=== PATIENT | female | born 1970 | race Caucasian/White ===

== ENCOUNTER 2021-03-30 20:35 | Inpatient (IN) | payer OTHER, MEDICAID ==
[~2021-03-30] VITALS: Ht 160 cm; Wt 83.9 kg
[2021-03-31 01:09] LABS: BASOPHILS % 0.7 % (0.0-2.0); EOSINOPHILS % 1.3 % (0.0-5.0); HEMATOCRIT. 33.2 % (36.0-48.0); HEMOGLOBIN. 10.9 g/dL (12.0-16.0); MEAN CORPUSCULAR HEMOGLOBIN 29.2 pg (28.0-32.0); MEAN CORPUSCULAR VOLUME 88.9 fL (81.0-99.0); MEAN PLATELET VOLUME 7.9 fl (7.4-10.4); MONOCYTES % 6.7 % (2.0-8.0); NEUTROPHILS % 44.3 % (40.0-76.0); PLATELET 248 x1000/uL (130-400); RED BLOOD CELL COUNT 3.73 mill/uL (4.2-5.4); RED CELL DISTRIBUTION WIDTH 13.9 % (11.6-14.6)
[2021-03-31 01:29] LABS: CHLORIDE 96 mEq/L (98-107); HCG SCREEN NEGATIVE
[2021-03-31 01:33] LABS: ETHANOL BLOOD < 10 mg/dL
[2021-03-31] MEDS ORDERED: MORPHINE SULFATE 4 MG/ML CPJ (NOT FOR IM USE) IV SCH (01:45)
[2021-03-31] MEDS ORDERED: ONDANSETRON HCL 4MG/2ML INJ IV SCH (05:30)
[2021-03-31] MEDS ORDERED: IOHEXOL-350 100 ML BOTTLE ONE (06:54)
[2021-03-31] MEDS ORDERED: DOCUSATE SODIUM 100MG CAPSULE PO PRN (07:15)
[2021-03-31] MEDS ORDERED: MAGNESIUM/ALUMINUM HYDROXIDE/SIMETHICONE 30ML UDC PO PRN (07:15)
[2021-03-31] MEDS ORDERED: NITROGLYCERIN 0.4MG TABLET SL SL PRN (07:15)
[2021-03-31] MEDS ORDERED: IPRATROPIUM/ALBUTEROL 0.5-3(2.5)MG/3ML NEB NEB PRN (07:15)
[2021-03-31] MEDS ORDERED: KETOROLAC 15MG/ML VIAL IV PRN (07:15)
[2021-03-31] MEDS ORDERED: ONDANSETRON HCL 4MG/2ML INJ IV PRN (07:15)
[2021-03-31] MEDS ORDERED: ACETAMINOPHEN 325MG TABLET PO PRN (07:15)
[2021-03-31] MEDS ORDERED: GUAIFENESIN 200MG/10ML SUGAR FREE UDC PO PRN (07:15)
[2021-03-31] MEDS ORDERED: CLONIDINE 0.1MG TABLET PO PRN (07:15)
[2021-03-31] MEDS ORDERED: DEXTROSE 50% WATER 50ML SYRINGE IV PRN (07:15)
[2021-03-31] MEDS ORDERED: ZOLPIDEM TARTRATE 5MG TABLET PO PRN (07:15)
[2021-03-31] MEDS ORDERED: TRAMADOL 50MG TABLET PO PRN (07:15)
[2021-03-31 07:44] LABS: VITAMIN B12 SERUM 666 pg/mL (211-911)
[2021-03-31 07:51] LABS: FOLIC ACID (FOLATE) SERUM > 20.00 ng/mL (>5.38)
[2021-03-31] MEDS ORDERED: ENOXAPARIN 80MG/0.8ML SYR SUBCUT NR (08:00)
[2021-03-31 08:49] LABS: INR 0.9; PROTHROMBIN TIME 9.9 sec (9.6-11.0)
[2021-03-31] MEDS: BLOOD SUGAR DIAGNOSTIC STRIP TEST SCH ×4 (09:52→20:05)
[2021-03-31] MEDS: FAMOTIDINE 20MG TABLET PO SCH ×2 (10:06→19:53)
[2021-03-31] MEDS: INSULIN LISPRO 100 UNITS/ML SUBCUT SCH ×4 (10:06→20:05)
[2021-03-31 11:00] VITALS: BP 98/59
[2021-03-31 11:05] LABS: *BARBITURATES SCREEN URINE NEGATIVE (NEGATIVE); CANNABINOID URINE SCREEN NEGATIVE (NEGATIVE); METHADONE URINE SCREEN NEGATIVE (NEGATIVE); OPIATES URINE SCREEN PRESUMTIVE POSITIVE (NEGATIVE); PHENCYCLIDINE URINE SCREEN NEGATIVE (NEGATIVE)
[2021-03-31 11:06] LABS: *AMPHETAMINES SCREEN URINE PRESUMTIVE POSITIVE (NEGATIVE); *BENZODIAZEPINES SCREEN URINE NEGATIVE (NEGATIVE); *COCAINE SCREEN URINE NEGATIVE (NEGATIVE)
[2021-03-31] MEDS: INSULIN GLARGINE UD 100 UNITS/ML SYR SUBCUT SCH (11:57)
[2021-03-31 12:00] VITALS: BP 98/59
[2021-03-31] MEDS ORDERED: DABI75CA3 PO (14:16)
[2021-03-31] MEDS ORDERED: LOPHC2 MT (14:16)
[2021-03-31] MEDS ORDERED: INSU100I28 SQ (14:16)
[2021-03-31] MEDS ORDERED: OMEP20CA14 MT (14:16)
[2021-03-31] MEDS ORDERED: EFEX1 MT (14:16)
[2021-03-31] MEDS ORDERED: GABA-290 MT (14:16)
[2021-03-31] MEDS ORDERED: INFLUENZA VACCINE 05/PF 0.5 ML SYRINGE IM ONE (15:15)
[2021-03-31 16:00] VITALS: BP 97/48
[2021-03-31 17:32] LABS: CREATINE KINASE 45 IU/L (26-192)
[2021-03-31 17:33] LABS: CREATINE KINASE MB FRACTION 1.1 ng/mL (0.5-3.6)
[2021-03-31] MEDS: ENOXAPARIN 80MG/0.8ML SYR SUBCUT SCH (19:53)
[2021-03-31 20:00] VITALS: BP_SYST 103; BP_DIAS 61; BP_DIAS 72
[2021-04-01] VITALS: BP 103/72
[2021-04-01 00:29] LABS: CREATINE KINASE 32 IU/L (26-192)
[2021-04-01 00:30] LABS: CREATINE KINASE MB FRACTION < 1.0 ng/mL (0.5-3.6)
[2021-04-01 04:00] VITALS: BP 97/68
[2021-04-01] MEDS: BLOOD SUGAR DIAGNOSTIC STRIP TEST SCH ×4 (05:17→21:06)
[2021-04-01] MEDS: INSULIN LISPRO 100 UNITS/ML SUBCUT SCH ×4 (05:17→21:13)
[2021-04-01 08:00] VITALS: BP 98/70
[2021-04-01 08:30] LABS: BASOPHILS % 0.3 % (0.0-2.0); EOSINOPHILS % 1.1 % (0.0-5.0); HEMATOCRIT. 32.1 % (36.0-48.0); HEMOGLOBIN. 10.5 g/dL (12.0-16.0); LYMPHOCYTES % 46.8 % (20.0-50.0); MEAN CORPUSCULAR HEMOGLOBIN 29.2 pg (28.0-32.0); MEAN CORPUSCULAR VOLUME 88.8 fL (81.0-99.0); MEAN PLATELET VOLUME 7.5 fl (7.4-10.4); MONOCYTES % 7.2 % (2.0-8.0); NEUTROPHILS % 44.6 % (40.0-76.0); PLATELET 244 x1000/uL (130-400); RED BLOOD CELL COUNT 3.61 mill/uL (4.2-5.4); RED CELL DISTRIBUTION WIDTH 14.2 % (11.6-14.6)
[2021-04-01 08:55] LABS: CHLORIDE 105 mEq/L (98-107)
[2021-04-01] MEDS ORDERED: PNEUMOCOCCAL 23-VAL P-SAC VAC 0.5 ML IM ONE (09:00)
[2021-04-01 09:04] LABS: PHOSPHORUS 3.8 mg/dL (2.5-4.9)
[2021-04-01] MEDS: FAMOTIDINE 20MG TABLET PO SCH ×2 (09:25→21:05)
[2021-04-01] MEDS: ENOXAPARIN 80MG/0.8ML SYR SUBCUT SCH ×2 (09:27→21:05)
[2021-04-01] MEDS: INSULIN GLARGINE UD 100 UNITS/ML SYR SUBCUT SCH (10:00)
[2021-04-01 12:00] VITALS: BP 100/68
[2021-04-01] MEDS ORDERED: LIDOCAINE HCL 2% JELLY 5ML TOP NR (12:00)
[2021-04-01] MEDS ORDERED: LIDOCAINE HCL 1% 20ML VIAL (Pyxis) INJ INFIL NR (12:00)
[2021-04-01] MEDS: NICOTINE 7MG PATCH TD SCH (14:30)
[2021-04-01] MEDS ORDERED: CEFTRIAXONE 1 G PREMIX 50 ML IV SCH (15:45)
[2021-04-01 16:00] VITALS: BP 98/70
[2021-04-01] MEDS ORDERED: NALOXONE HCL 0.4MG/ML VIAL IV PRN (17:00)
[2021-04-01] MEDS ORDERED: CEFTRIAXONE 1,000 MG in DEXTROSE 5% WATER 50 ML IV SCH (17:30)
[2021-04-01] MEDS ORDERED: VANCOMYCIN 1500MG in DEXTROSE 5% WATER 250ML IV NR (18:00)
[2021-04-01] MEDS ORDERED: DIPHENHYDRAMINE 50MG/ML VIAL IV NR (19:45)
[2021-04-01 20:00] VITALS: BP 125/80
[2021-04-02] VITALS: BP 101/56
[2021-04-02 04:00] VITALS: BP 111/72
[2021-04-02] MEDS ORDERED: VANCOMYCIN 1 G PREMIX 200 ML IV SCH (06:00)
[2021-04-02] MEDS: BLOOD SUGAR DIAGNOSTIC STRIP TEST SCH ×4 (06:02→20:53)
[2021-04-02] MEDS: INSULIN LISPRO 100 UNITS/ML SUBCUT SCH ×4 (06:18→20:53)
[2021-04-02 08:00] VITALS: BP 92/57
[2021-04-02 08:30] LABS: BASOPHILS % 0.3 % (0.0-2.0); EOSINOPHILS % 1.2 % (0.0-5.0); HEMOGLOBIN. 10.5 g/dL (12.0-16.0); LYMPHOCYTES % 54.5 % (20.0-50.0); MEAN CORPUSCULAR VOLUME 88.5 fL (81.0-99.0); MEAN PLATELET VOLUME 7.8 fl (7.4-10.4); MONOCYTES % 7.5 % (2.0-8.0); NEUTROPHILS % 36.5 % (40.0-76.0); PLATELET 261 x1000/uL (130-400); RED BLOOD CELL COUNT 3.62 mill/uL (4.2-5.4); RED CELL DISTRIBUTION WIDTH 13.9 % (11.6-14.6)
[2021-04-02 08:51] LABS: CHLORIDE 104 mEq/L (98-107)
[2021-04-02] MEDS: NICOTINE 7MG PATCH TD SCH (09:30)
[2021-04-02] MEDS: ENOXAPARIN 80MG/0.8ML SYR SUBCUT SCH ×2 (09:31→20:53)
[2021-04-02] MEDS: FAMOTIDINE 20MG TABLET PO SCH ×2 (09:31→20:52)
[2021-04-02] MEDS: INSULIN GLARGINE UD 100 UNITS/ML SYR SUBCUT SCH (09:32)
[2021-04-02 12:00] VITALS: BP 123/79
[2021-04-02 16:00] VITALS: BP 131/75
[2021-04-02] MEDS: VANCOMYCIN 1 G PREMIX 200 ML IV SCH (16:08)
[2021-04-02] MEDS ORDERED: TETANUS, DIPHTHERIA, PERTUSSIS VAC/PF 0.5ML (>10YR OLD) IM ONE (17:00)
[2021-04-02] MEDS: HYDROCODONE/ACETAMINOPHEN 5/325MG TABLET PO PRN (17:56)
[2021-04-02 20:00] VITALS: BP 112/66
[2021-04-02] MEDS: CEFTRIAXONE 1,000 MG in DEXTROSE 5% WATER 50 ML IV SCH (20:52)
[2021-04-03] VITALS: BP 126/71
[2021-04-03 04:00] VITALS: BP 111/61
[2021-04-03] MEDS: VANCOMYCIN 1 G PREMIX 200 ML IV SCH ×3 (06:02→21:10)
[2021-04-03] MEDS: BLOOD SUGAR DIAGNOSTIC STRIP TEST SCH ×4 (06:02→21:11)
[2021-04-03] MEDS: INSULIN LISPRO 100 UNITS/ML SUBCUT SCH ×4 (06:41→21:11)
[2021-04-03 08:00] VITALS: BP 105/62
[2021-04-03] MEDS: ENOXAPARIN 80MG/0.8ML SYR SUBCUT SCH ×2 (08:26→21:10)
[2021-04-03] MEDS: NICOTINE 7MG PATCH TD SCH (08:26)
[2021-04-03] MEDS: FAMOTIDINE 20MG TABLET PO SCH ×2 (08:26→21:10)
[2021-04-03] MEDS: ACETAMINOPHEN 325MG TABLET PO PRN (08:33)
[2021-04-03] MEDS: INSULIN GLARGINE UD 100 UNITS/ML SYR SUBCUT SCH (10:18)
[2021-04-03 10:51] LABS: HEPATITIS B SURFACE ANTIGEN NEGATIVE
[2021-04-03 12:00] VITALS: BP 104/59
[2021-04-03 15:51] LABS: CHLORIDE 103 mEq/L (98-107)
[2021-04-03 15:57] LABS: PARTIAL THROMBOPLASTIN TIME 28.8 sec (23.4-31.0); PROTHROMBIN TIME 10.3 sec (9.6-11.0)
[2021-04-03 16:00] VITALS: BP 102/64
[2021-04-03 16:17] LABS: BASOPHILS % 0.3 % (0.0-2.0); HEMATOCRIT. 30.3 % (36.0-48.0); HEMOGLOBIN. 10.1 g/dL (12.0-16.0); LYMPHOCYTES % 52.6 % (20.0-50.0); MEAN CORPUSCULAR HEMOGLOBIN 29.3 pg (28.0-32.0); MEAN CORPUSCULAR VOLUME 88.2 fL (81.0-99.0); NEUTROPHILS % 40.1 % (40.0-76.0); PLATELET 272 x1000/uL (130-400); RED BLOOD CELL COUNT 3.44 mill/uL (4.2-5.4)
[2021-04-03] MEDS ORDERED: ENOXAPARIN 80MG/0.8ML SYR SUBCUT SCH (16:23)
[2021-04-03] MEDS: CEFTRIAXONE 1,000 MG in DEXTROSE 5% WATER 50 ML IV SCH (19:40)
[2021-04-03 20:00] VITALS: BP 103/64
[2021-04-04] VITALS: BP 104/54
[2021-04-04 04:00] VITALS: BP 118/67
[2021-04-04] MEDS: BLOOD SUGAR DIAGNOSTIC STRIP TEST SCH ×4 (06:20→20:33)
[2021-04-04] MEDS: INSULIN LISPRO 100 UNITS/ML SUBCUT SCH ×4 (06:20→20:32)
[2021-04-04] MEDS: ENOXAPARIN 80MG/0.8ML SYR SUBCUT SCH ×2 (07:01→20:44)
[2021-04-04 07:24] LABS: BASOPHILS % 0.4 % (0.0-2.0); HEMOGLOBIN. 10.5 g/dL (12.0-16.0); LYMPHOCYTES % 54.3 % (20.0-50.0); MEAN CORPUSCULAR HEMOGLOBIN 29.8 pg (28.0-32.0); MEAN CORPUSCULAR VOLUME 87.8 fL (81.0-99.0); MEAN PLATELET VOLUME 7.5 fl (7.4-10.4); MONOCYTES % 6.7 % (2.0-8.0); NEUTROPHILS % 36.6 % (40.0-76.0); PLATELET 273 x1000/uL (130-400); RED BLOOD CELL COUNT 3.53 mill/uL (4.2-5.4); RED CELL DISTRIBUTION WIDTH 14.1 % (11.6-14.6)
[2021-04-04 07:34] LABS: CHLORIDE 104 mEq/L (98-107)
[2021-04-04 08:00] VITALS: BP 103/60
[2021-04-04] MEDS ORDERED: LIDOCAINE HCL 1% 20ML VIAL (Pyxis) INJ ONE (08:00)
[2021-04-04] MEDS ORDERED: VANCOMYCIN HCL 1 GM/VIAL ONE (08:00)
[2021-04-04] MEDS ORDERED: BUPIVACAINE HCL/PF 0.5% (5MG/ML) 10ML ONE (08:00)
[2021-04-04] MEDS ORDERED: POLYMYXIN B SULFATE 500000 UNITS/VIAL ONE (08:01)
[2021-04-04] MEDS: VANCOMYCIN 1 G PREMIX 200 ML IV SCH (08:14)
[2021-04-04] MEDS: FAMOTIDINE 20MG TABLET PO SCH ×2 (08:40→20:33)
[2021-04-04] MEDS: NICOTINE 7MG PATCH TD SCH (08:41)
[2021-04-04] MEDS ORDERED: PROPOFOL 200MG/20ML VIAL IV ONE (09:22)
[2021-04-04] MEDS ORDERED: FENTANYL CITRATE/PF 50MCG/ML 2ML VIAL ONE (09:22)
[2021-04-04] MEDS ORDERED: MIDAZOLAM HCL 2 MG/2 ML VIAL ONE (09:22)
[2021-04-04] MEDS ORDERED: ONDANSETRON HCL 4MG/2ML INJ ONE (09:31)
[2021-04-04] MEDS ORDERED: DEXAMETHASONE 4MG/ML 1ML VIAL ONE (09:31)
[2021-04-04] MEDS ORDERED: LABETALOL 5MG/ML SYR 20 MG/4 ML SYRINGE IV PRN (10:00)
[2021-04-04] MEDS ORDERED: ONDANSETRON HCL 4MG/2ML INJ IV PRN (10:00)
[2021-04-04] MEDS ORDERED: MEPERIDINE HCL/PF 25MG/ML CPJ IV PRN (10:00)
[2021-04-04 12:00] VITALS: BP 116/83
[2021-04-04] MEDS: INSULIN GLARGINE UD 100 UNITS/ML SYR SUBCUT SCH (12:05)
[2021-04-04 16:00] VITALS: BP 128/77
[2021-04-04 20:00] VITALS: BP 103/65
[2021-04-04] MEDS: CEFTRIAXONE 1,000 MG in DEXTROSE 5% WATER 50 ML IV SCH (20:07)
[2021-04-04] MEDS: HYDROCODONE/ACETAMINOPHEN 5/325MG TABLET PO PRN (20:31)
[2021-04-04] MEDS: VANCOMYCIN 750 MG PREMIX 150 ML IV SCH (20:33)
[2021-04-05] VITALS: BP 110/72
[2021-04-05] MEDS: HYDROCODONE/ACETAMINOPHEN 5/325MG TABLET PO PRN ×2 (00:48→09:26)
[2021-04-05 04:00] VITALS: BP 122/75
[2021-04-05] MEDS: BLOOD SUGAR DIAGNOSTIC STRIP TEST SCH ×4 (06:31→21:12)
[2021-04-05] MEDS: INSULIN LISPRO 100 UNITS/ML SUBCUT SCH ×4 (06:31→21:11)
[2021-04-05 06:57] LABS: BASOPHILS % 0.3 % (0.0-2.0); EOSINOPHILS % 1.3 % (0.0-5.0); HEMATOCRIT. 29.2 % (36.0-48.0); HEMOGLOBIN. 9.6 g/dL (12.0-16.0); LYMPHOCYTES % 44.6 % (20.0-50.0); MEAN CORPUSCULAR HEMOGLOBIN 28.9 pg (28.0-32.0); MEAN CORPUSCULAR VOLUME 88.1 fL (81.0-99.0); MEAN PLATELET VOLUME 7.3 fl (7.4-10.4); MONOCYTES % 9.4 % (2.0-8.0); NEUTROPHILS % 44.4 % (40.0-76.0); PLATELET 259 x1000/uL (130-400); RED BLOOD CELL COUNT 3.32 mill/uL (4.2-5.4)
[2021-04-05 07:09] LABS: CHLORIDE 104 mEq/L (98-107)
[2021-04-05 08:00] VITALS: BP 101/65
[2021-04-05] MEDS: VANCOMYCIN 750 MG PREMIX 150 ML IV SCH ×2 (09:01→21:13)
[2021-04-05] MEDS: FAMOTIDINE 20MG TABLET PO SCH ×2 (09:01→21:11)
[2021-04-05] MEDS: NICOTINE 7MG PATCH TD SCH (09:01)
[2021-04-05] MEDS: ENOXAPARIN 80MG/0.8ML SYR SUBCUT SCH ×2 (09:02→21:10)
[2021-04-05] MEDS: INSULIN GLARGINE UD 100 UNITS/ML SYR SUBCUT SCH (09:06)
[2021-04-05 12:00] VITALS: BP 109/66
[2021-04-05 16:00] VITALS: BP 112/69
[2021-04-05 20:00] VITALS: BP 120/72
[2021-04-05] MEDS: CEFTRIAXONE 1,000 MG in DEXTROSE 5% WATER 50 ML IV SCH (20:53)
[2021-04-05] MEDS: ACETAMINOPHEN 325MG TABLET PO PRN (21:12)
[2021-04-05] MEDS: LORAZEPAM 2MG/ML CPJ IV PRN (21:12)
[2021-04-06] VITALS (9 sets, daily range): BP systolic 91–125; BP diastolic 58–80
[2021-04-06] MEDS: HYDROCODONE/ACETAMINOPHEN 5/325MG TABLET PO PRN ×2 (02:03→09:19)
[2021-04-06] MEDS: INSULIN LISPRO 100 UNITS/ML SUBCUT SCH ×4 (06:19→20:30)
[2021-04-06] MEDS: BLOOD SUGAR DIAGNOSTIC STRIP TEST SCH ×4 (06:38→20:30)
[2021-04-06 08:45] LABS: BASOPHILS % 0.4 % (0.0-2.0); EOSINOPHILS % 1.3 % (0.0-5.0); HEMATOCRIT. 28.9 % (36.0-48.0); HEMOGLOBIN. 9.5 g/dL (12.0-16.0); LYMPHOCYTES % 47.1 % (20.0-50.0); MEAN CORPUSCULAR HEMOGLOBIN 28.8 pg (28.0-32.0); MEAN CORPUSCULAR VOLUME 87.8 fL (81.0-99.0); MEAN PLATELET VOLUME 7.5 fl (7.4-10.4); NEUTROPHILS % 42.2 % (40.0-76.0); PLATELET 232 x1000/uL (130-400); RED BLOOD CELL COUNT 3.29 mill/uL (4.2-5.4); RED CELL DISTRIBUTION WIDTH 14.1 % (11.6-14.6)
[2021-04-06 09:08] LABS: CHLORIDE 104 mEq/L (98-107)
[2021-04-06] MEDS: FAMOTIDINE 20MG TABLET PO SCH ×2 (09:17→20:25)
[2021-04-06] MEDS: NICOTINE 7MG PATCH TD SCH (09:20)
[2021-04-06] MEDS: ENOXAPARIN 80MG/0.8ML SYR SUBCUT SCH ×2 (09:22→20:30)
[2021-04-06] MEDS: VANCOMYCIN 750 MG PREMIX 150 ML IV SCH ×2 (09:23→20:45)
[2021-04-06] MEDS ORDERED: INSULIN GLARGINE UD 100 UNITS/ML SYR SUBCUT SCH (10:00)
[2021-04-06] MEDS: LORAZEPAM 2MG/ML CPJ IV PRN (20:25)
[2021-04-06] MEDS: CEFTRIAXONE 1,000 MG in DEXTROSE 5% WATER 50 ML IV SCH (20:25)
== END 2021-04-06 22:42 | DRG 907 ==
LOC: ER 20:35 → 8WST 03-31 04:42 → ENRESERV 03-31 07:56
PROVIDERS: ADMIT Internal Medicine; ATTEND Internal Medicine
PROC: 0QBP0ZZ Excision of Left Metatarsal, Open Approach (ICD-10-PCS; 2021-04-01)
PROC: 02HV33Z Insertion of Infusion Device into Superior Vena Cava, Percutaneous Approach (ICD-10-PCS; 2021-04-03)
PROC: 0Y6U0Z1 Detachment at Left 3rd Toe, High, Open Approach (ICD-10-PCS; principal; 2021-04-04)
DX: T43.621A Poisoning by amphetamines, accidental (unintentional), initial encounter (principal); I50.33 Acute on chronic diastolic (congestive) heart failure; E11.52 Type 2 diabetes mellitus with diabetic peripheral angiopathy with gangrene; E44.0 Moderate protein-calorie malnutrition; E87.1 Hypo-osmolality and hyponatremia; L03.116 Cellulitis of left lower limb; M86.8X7 Other osteomyelitis, ankle and foot; I82.513 Chronic embolism and thrombosis of femoral vein, bilateral; I82.533 Chronic embolism and thrombosis of popliteal vein, bilateral; I11.0 Hypertensive heart disease with heart failure; D63.8 Anemia in other chronic diseases classified elsewhere; E11.621 Type 2 diabetes mellitus with foot ulcer; E11.649 Type 2 diabetes mellitus with hypoglycemia without coma; E11.65 Type 2 diabetes mellitus with hyperglycemia; F15.90 Other stimulant use, unspecified, uncomplicated; F41.9 Anxiety disorder, unspecified; I25.10 Atherosclerotic heart disease of native coronary artery without angina pectoris; L60.2 Onychogryphosis; L84 Corns and callosities; L97.529 Non-pressure chronic ulcer of other part of left foot with unspecified severity; M79.7 Fibromyalgia; E11.42 Type 2 diabetes mellitus with diabetic polyneuropathy; T36.8X5A Adverse effect of other systemic antibiotics, initial encounter; R26.89 Other abnormalities of gait and mobility; Z20.822 Contact with and (suspected) exposure to COVID-19; R06.03 Acute respiratory distress; E11.69 Type 2 diabetes mellitus with other specified complication; Z87.891 Personal history of nicotine dependence; Z89.411 Acquired absence of right great toe; Z89.429 Acquired absence of other toe(s), unspecified side; Z91.14 Patient's other noncompliance with medication regimen; Z91.19 Patient's noncompliance with other medical treatment and regimen; Z95.828 Presence of other vascular implants and grafts; Z79.4 Long term (current) use of insulin; Z79.899 Other long term (current) drug therapy; Z98.51 Tubal ligation status; Z68.32 Body mass index [BMI] 32.0-32.9, adult; Y92.89 Other specified places as the place of occurrence of the external cause; Z89.422 Acquired absence of other left toe(s); Z79.01 Long term (current) use of anticoagulants; F19.10 Other psychoactive substance abuse, uncomplicated; Z71.51 Drug abuse counseling and surveillance of drug abuser; Z86.711 Personal history of pulmonary embolism; J70.2 Acute drug-induced interstitial lung disorders
CPT/HCPCS: 36415; 36573; 71045; 71275; 73630; 80048; 80053; 80202; 80305; 80320; 82550; 82553; 82607; 82746; 82962; 83036; 83735; 83880; 83930; 84100; 84145; 84484; 84703; 85025; 85379; 85651; 86141; 86703; 86705; 86709; 86803; 87070; 87075; 87077; 87186; 87340; 87426; 88311; 90686; 90715; 90732; 93005; 93306; 93923; 93970; 97116; 97162; 97166; 99285; C1725; C1893; J0696; J1100; J1200; J1650; J1815; J1885; J2060; J2250; J2270; J2405; J2704; J3010; J3370; J3490; J7040; J7060; Q9967; G0480